=== PATIENT | male | born 1955 | race Caucasian/White ===

== ENCOUNTER 2019-07-10 05:39 | Outpatient (CLI) | payer BC ==
[~2019-07-10] VITALS: Ht 185 cm; Wt 84.0 kg
[~2019-07-10 05:39] MED LIST: ASPI-587 PO; BISO10TA PO; ENAL20TA PO; PRAV10TA PO; [UNRECOGNIZED DRUG - OTHER] PO
[2019-07-10] MEDS ORDERED: PRAV20TA3 PO (14:16)
[2019-07-10] MEDS ORDERED: LISI10TA2 PO (14:16)
[2019-07-10] MEDS ORDERED: ASPI-999 PO (14:16)
[2019-07-10] MEDS ORDERED: BISO10TA PO (14:16)
[2019-07-10] MEDS ORDERED: MULT1CAP27 PO (14:16)
== END 2019-07-10 14:35 | disposition home or self-care (01) ==
LOC: PREOP 05:39
PROVIDERS: ATTEND Surgery
DX: Z01.818 Encounter for other preprocedural examination (principal)

== ENCOUNTER 2021-07-15 09:05 | Outpatient (CLI) | payer BC ==
[~2021-07-15] VITALS: Ht 63.5 cm; Wt 95.3 kg
[~2021-07-15 09:05] MED LIST changes: +ACHD5005 PO; +ASPI-999 PO; +BISO10TA6 PO; +DOCU-143 PO; +LISI10TA25 PO; +MULT1CAP27 PO; +PRAV20TA3 PO
== END 2021-07-19 12:50 | disposition home or self-care (01) ==
LOC: PREOP 09:05
PROVIDERS: ATTEND Internal Medicine
DX: Z01.818 Encounter for other preprocedural examination (principal)

== ENCOUNTER → 2021-07-20 | Outpatient (CLI) | payer BC | LOC: CARD 09:00 | PROVIDERS: ATTEND Internal Medicine | DX: I08.0 Rheumatic disorders of both mitral and aortic valves (principal) | CPT/HCPCS: 93306 ==

== ENCOUNTER 2021-07-23 08:57 | Day surgery (SDC) | payer BC ==
--- NOTE | 2021-07-15 18:23 | HISTORY AND PHYSICAL ---
DATE OF SERVICE: SCREENING COLONOSCOPY HISTORY OF PRESENT ILLNESS: The patient is a 65-year-old white male referred by MARGRET Chadwick at Dr. Hardy's office for screening colonoscopy. I had performed an earlier colonoscopy on him 8 years ago with a little over 7 years ago, at which time he had 3 polyps removed, a tubular adenoma from the distal descending colon and hyperplastic polyps in the mid rectum and distal sigmoid colon. He states that he feels well. He has noted no bright red blood per rectum. Denies any bowel habit change or abdominal pain. He is not aware of any family history for colon cancer. PAST MEDICAL HISTORY: Significant for hypertension, hyperlipidemia with no known history of coronary artery disease. MEDICATIONS ON ADMISSION: Include bisoprolol 10 mg daily, pravastatin 80 mg daily, lisinopril 10 mg daily, baby aspirin daily, 2 grams of fish oil daily and multiple vitamin. PAST SURGICAL HISTORY: The patient reports no past surgeries. FAMILY HISTORY: Father at the age of 67 secondary to complications of coronary artery disease. Mother at age of 77 of malignant melanoma. SOCIAL HISTORY: He reports moderate alcohol intake with a 30- to 69-[id number]-xxis past smoking history. As I recall, he stated that he quit several years ago. REVIEW OF SYSTEMS: CONSTITUTIONAL: Denies night sweats, chills, fever, change in weight. PULMONARY: Denies cough, wheezing or shortness of breath. CARDIOVASCULAR: Denies chest pain, orthopnea, PND, pedal edema or syncope. GASTROINTESTINAL: As noted in the HPI. PHYSICAL EXAMINATION: GENERAL: Reveals a white male, appeared to be in no acute distress. VITAL SIGNS: Blood pressure 138/90, weight 212.6 pounds, up 5 pounds from 7 years ago. HEENT: Unremarkable. Sclerae nonicteric. CHEST: Clear to auscultation. CARDIOVASCULAR: Reveals a regular rate and rhythm. There is early systolic blowing type murmur noted best in the apex. It radiates laterally into the axilla, but can be heard in the back, especially on the left side. There is no S3 or S4 noted. No evidence for pulsus, parvus or tardus. NECK: Revealed no JVD, adenopathy or bruits. ABDOMEN: Soft, supple without mass, organomegaly or tenderness. EXTREMITIES: Reveal no cyanosis, clubbing or edema. ASSESSMENT: 1. The patient is being set up for screening colonoscopy. Prep instructions with Suprep kit were given and questions were answered. 2. Incidentally noted the patient has murmur suggesting mitral insufficiency and the possibility of mitral valve prolapse. The patient denies symptoms. Reports he has had no previous evaluation. I did take the liberty of setting him up for an echo with recommendations for referral back to discuss whether or not further investigation is recommended after echo results are available. I thank you for the referral of this pleasant gentleman. Job ID: [id number] DocumentID: [id number] Dictated Date: 07/15/2021 17:09:37 [employer] Consultant Date: 07/15/2021 18:23:00 Dictated By: ALICIA AN MD MTDD
[~2021-07-23] VITALS: Ht 185.9 cm; Wt 95.3 kg
[2021-07-23] MEDS ORDERED: LACTATED RINGERS 1,000 ML IV ONE (09:10)
[2021-07-23] MEDS ORDERED: LACTATED RINGERS 1,000 ML IV STA (09:17)
[2021-07-23] MEDS ORDERED: LIDOCAINE JELLY 2% 6 ML SYRINGE MM PRN (09:30)
[2021-07-23 09:31] VITALS: BP 139/76
[2021-07-23] MEDS ORDERED: PROPOFOL INJECTION 50 ML IV ONE (10:28)
[2021-07-23 11:15] VITALS: BP 107/62
[2021-07-23 11:17] VITALS: BP 107/62
[2021-07-23 11:30] VITALS: BP 121/73
[2021-07-23 11:50] VITALS: BP 121/73
--- NOTE | 2021-07-23 12:41 | Anesthesia-General Post-Op ---
MAC Patient Condition Mental Status/LOC: Same as Preop Cardiovascular: Satisfactory Nausea/Vomiting: Absent Respiratory: Satisfactory Pain: Controlled Complications: Absent Post Op Complications Complications None Follow Up Care/Instructions Patient Instructions None needed. Anesthesiology Discharge Order Discharge Order Patient is doing well, no complaints, stable vital signs, no apparent adverse anesthesia problems. No complications reported per nursing. YORDY PARDO CRNA Jul 23, 2021 12:41
--- NOTE | 2021-07-23 13:15 | OPERATIVE REPORT ---
DATE OF SERVICE: COLONOSCOPY SUMMARY INDICATION FOR THE PROCEDURE: Screening colonoscopy. DESCRIPTION OF PROCEDURE: The patient was placed in the left lateral decubitus position. Prior to undergoing colonoscopy, digital rectal evaluation was performed. Anal sphincter tone was normal and the perianal reflexes intact. The prostate is anodular and unremarkable on digital inspection. No abnormalities were noted on digital inspection of anal canal or distal rectal vault. The colonoscope was then inserted into the rectum and under direct visualization advanced to cecum. The cecum was identified by identification of ileocecal valve and cecal strap. Photographic documentation was obtained. Careful inspection was made as colonoscope withdrawn. Quality of prep was good. FINDINGS: There was no evidence for internal or external hemorrhoids. The rectum was unremarkable around the rectosigmoid junction where several hyperplastic polyps present 18 cm from the anal verge, in the distal sigmoid colon was an annular lesion. There was not overt evidence for ulceration, it was a polypoidal in appearance involving about half of the colonic wall and suspicious for at least a severely dysplastic polyp if not, underlying malignancy. It was too large to reliably remove via endoscopic means. Multiple biopsies were obtained and submitted. A 5 cm proximal to this in the sigmoid colon was a pedunculated polyp, which was snared, retrieved and submitted in its entirety, measuring about 1.5 cm in size. There were several adjacent sessile hyperplastic appearing polyps that were biopsied and cauterized via hot forceps. Several small to medium size sigmoid diverticulum were present as well as descending colonic diverticulum without evidence for diverticulitis. The splenic flexure, transverse colon, hepatic flexure, ascending colon, and cecum were unremarkable. ASSESSMENT: There is a suspicious polypoid-appearing mass in the distal sigmoid colon 18 cm from the anal verge, concerning for early underlying malignancy. Multiple biopsies were obtained and submitted for histopathology. This will require surgical excision if it is indeed a neoplastic process. A 1.5 cm pedunculated polyp was removed from the mid sigmoid colon via snare and there were several polyps also noted in the distal sigmoid colon removed via hot forceps with hyperplastic appearing features. The patient did have qtho-cm-vnyldqan diverticular disease noted in the sigmoid and descending colon without evidence for diverticulitis. We will discuss complex medical management as he does have new onset significant mitral insufficiency that will need to be worked up prior to any potential colonic surgery. Thank you for the referral of this pleasant gentleman. Job ID: [id number] DocumentID: [id number] Dictated Date: 07/23/2021 12:44:32 Global Supply Chain Director Date: 07/23/2021 13:14:33 Dictated By: ALICIA AN MD [facility]
== END 2021-07-23 11:50 | disposition home or self-care (01) ==
LOC: ENDO 08:57
PROVIDERS: ATTEND Internal Medicine
DX: Z12.11 Encounter for screening for malignant neoplasm of colon (principal); K63.5 Polyp of colon; D12.5 Benign neoplasm of sigmoid colon; K57.30 Diverticulosis of large intestine without perforation or abscess without bleeding; I10 Essential (primary) hypertension; E78.5 Hyperlipidemia, unspecified; Z79.82 Long term (current) use of aspirin; Z79.899 Other long term (current) drug therapy; Z80.8 Family history of malignant neoplasm of other organs or systems

== ENCOUNTER → 2021-08-09 | Outpatient (CLI) | payer MEDICARE, BC ==
[~2021-08-09] VITALS: Ht 185 cm; Wt 96.0 kg
[~2021-08-09] MED LIST changes: +CATHETER FLUSH 10 ML SYR IVP PRN; +OMG1KC PO; +PRAV80TA2 PO
[2021-08-09 09:40] VITALS: BP 148/85
--- NOTE | 2021-08-09 12:31 | Cardiology Stress Test Report ---
Stress Test Report Date of Procedure/Referring: Date of Procedure: Aug 09, 2021 PCP Evelyn Castaneda MD Admitting Physician Kika Hardy MD Indications: HTN Baseline Heart Rate: 50 Baseline Blood Pressure: Blood Pressure Systolic: 148 Blood Pressure Diastolic: 85 Vital Signs Date Time Temp Pulse Resp B/P (MAP) Pulse Ox O2 Delivery O2 Flow Rate FiO2 08/09/21 09:40 50 148/85 (106) Baseline Vital Signs Vital Signs Date Time Temp Pulse Resp B/P (MAP) Pulse Ox O2 Delivery O2 Flow Rate FiO2 08/09/21 09:40 50 148/85 (106) Baseline EKG: Baseline EKG: NSR Summary: After explaining the procedure and details to the patient, he signed the consent and was brought to the stress nuclear laboratory. Patient exercised on standard Bennie protocol, EKG, heart rate and blood pressure were monitored continuously, resting and stress doses of radio tracer were injected, imaging was acquired and reviewed in the short axis, horizontal long axis and vertical long axis views Patient was able to exercise for a total of 6.30 minutes on Bennie protocol, METs 7.9 Maximum heart rate 136 Maximum blood pressure 228/102 Stress EKG, Minimal nondiagnostic changes Recovery EKG, Return to baseline TID: 0.95 SSS: 6 SDS: 3 EF: 59 Conclusion: 1. Good exercise tolerance for a total of 6 minutes and 30 seconds on standard Bennie protocol, 7.9 METS achieving 85% of maximal expected heart rate 2. Mild chronotropic incompetence, heart rate stayed around 120 until the last minute of the test 3. Occasional PVCs noted early in recovery and short episode of paroxysmal atrial tachycardia 4 beats 4. Severe hypertensive response to exercise with peak blood pressure 228/102 5. Motion artifact and diaphragmatic attenuation, mild decrease uptake in the mid to apical inferior wall and inferolateral wall probably due to diaphragmatic attenuation with mild reversibility. No significant ischemia or infarction on SPECT images 6. Normal left ventricular size, EF 59% EVELYN CASTANEDA MD Aug 09, 2021 12:31
== END ==
LOC: CARD 08:13
PROVIDERS: ATTEND Internal Medicine Cardiovascular Disease
DX: I10 Essential (primary) hypertension (principal); I25.10 Atherosclerotic heart disease of native coronary artery without angina pectoris
CPT/HCPCS: 78452; 93017; A9502

== ENCOUNTER 2021-08-11 09:30 | Day surgery (SDC) | payer BC ==
[~2021-08-11] VITALS: Ht 185.4 cm; Wt 97.0 kg
[2021-08-11] VITALS (13 sets, daily range): BP systolic 117–162; BP diastolic 73–94
--- NOTE | 2021-08-11 08:01 | Conscious Sedation/ASA ---
Conscious Sedation Pre-Proced Time 08:00 ASA Score 3 For ASA 3 and 4: Consider anesthesia and medical clearance. Also, for patients with a history of failed moderate sedation consider anesthesia. Airway Lungs Heart ASA score ASA 1: a normal healthy patient ASA 2: a patient with a mild systemic disease (mid diabetes, controlled hypertension, obesity x ASA 3: a patient with a severe systemic disease that limits activity (angina, COPD, prior Myocardial infarction) ASA 4: a patient with an incapacitating disease that is a constant threat to life (CHF, renal failure) ASA 5: a moribund patient not expected to survive 24 hrs. (ruptured aneurysm) ASA 6: a declared brain- patient whose organs are being harvested. For emergent operations, add the letter E after the classification Mallampati Classification Grade 3 Sedation Plan Analgesia, Amnesia, Plan communicated to team members, Discussed options with patient/fam, Discussed risks with patient/fam The patient is an appropriate candidate to undergo the planned procedure, sedation, and anesthesia. The patient immediately re-assessed prior to indication. EVELYN CABRERA MD Aug 11, 2021 08:01
[2021-08-11 08:07] LABS: BILIRUBIN,URINE NEGATIVE (NEGATIVE); CLARITY,URINE CLEAR; COLOR,URINE YELLOW; GLUCOSE, URINE (UA) NEGATIVE (NEGATIVE); KETONES,URINE NEGATIVE (NEGATIVE); LEUKOCYTE ESTERASE ,URINE NEGATIVE (NEGATIVE); NITRITE,URINE NEGATIVE (NEGATIVE); PROTEIN,URINE NEGATIVE (NEGATIVE)
[2021-08-11 08:10] LABS: HEMATOCRIT 43 % (40-54); HEMOGLOBIN 14.6 g/dL (13.3-17.7); MEAN CORPUSCULAR HEMOGLOBIN 32 pg (25-34); MEAN CORPUSCULAR HGB CONC 34 g/dL (32-36); MEAN CORPUSCULAR VOLUME 93 fL (80-99); MEAN PLATELET VOLUME 9.5 fL (9.0-12.2); PLATELET COUNT 322 10^3/uL (130-400); WHITE BLOOD COUNT 8.2 10^3/uL (4.3-11.0)
--- NOTE | 2021-08-11 08:14 | Diagnostic Imaging Report ---
INDICATION: Pulmonary hypertension, pre-transesophageal echocardiography. Frontal chest obtained at 8:06 a.m. and compared to 01/13/2011. Heart and mediastinal silhouette are normal in appearance. Lungs appear clear. There is no sign of pleural fluid or pneumothorax. There is no significant edema. IMPRESSION: No acute process in the chest. Dictated by: Dictated on workstation # [id number]
[2021-08-11 08:23] LABS: INR 0.9 (0.8-1.4); PROTHROMBIN TIME PATIENT 12.2 SEC (12.2-14.7)
[2021-08-11 08:28] LABS: ALBUMIN 4.2 GM/DL (3.2-4.5); BILIRUBIN,TOTAL 0.6 MG/DL (0.1-1.0); CREATININE SERUM 0.91 MG/DL (0.60-1.30); POTASSIUM 3.9 MMOL/L (3.6-5.0); TOTAL PROTEIN 7.1 GM/DL (6.4-8.2)
[2021-08-11 08:34] LABS: BACTERIA,URINE NEGATIVE /HPF
[~2021-08-11 09:30] MED LIST changes: -CATHETER FLUSH 10 ML SYR IVP PRN; +LIDOCAINE 2% VISCOUS 15 ML UDC ONE; +LIDOCAINE 2% VISCOUS 15 ML UDC PO ONE; +MIDAZOLAM 5 MG/5 ML (VERSED) VIAL ONE; +NS IV 1000 ML 1,000 ML IV SCH; +NS IV 1000 ML 1,000 ML ONE; +fentaNYL INJ 100 MCG/2 ML AMP ONE
--- NOTE | 2021-08-11 10:27 | Discharge Inst-Post CATH ---
Discharge Inst-CATH/EP Problems Reviewed?: Yes Post Cardiac Cath/EP D/C Inst Follow Up/Plan Appointment with Dr. Castaneda's office in 2 to 4 weeks <b>CARDIAC CATH/EP PROCEDURE DISCHARGE INSTRUCTIONS</b> ACTIVITY * Go Home directly and rest. * Limit activity of the leg (or wrist if it was used) for 7 days including aer obics, swimming, jogging, bicycling, etc. * Restrict stair-climbing for 7 days if possible, if not, climb up with your non-cath leg, then bring together on the same step. * Avoid lifting, pushing, pulling or excessive movement of the affected extremi ty for 7 days. * Customary sexual activity may be resumed after 2 days-use caution not to use a position that strains or causes pain to the affected extremity. * No driving for 24 hours. * NO SMOKING. * Avoid straining for bowel movements for 7 days. * Gentle walking on level ground is allowed. * Returning to work will depend on the type of procedure and the results. Your doctor will discuss this with you. CALL YOUR DOCTOR FOR ANY OF THE FOLLOWING: *If bleeding from the puncture site occurs- Apply gentle pressure to site with clean cloth and call your doctor or EMS. * If a knot or lump forms under the skin, increases in size, or causes pain. * If bruising appears to be worsening or moving further down your leg instead of disappearing. * Temperature above 101 F. CARE OF YOUR GROIN INCISION; * Bruising or purple discoloration of the skin near the puncture site is common. * You may shower only, no bathtub bathing for 5 days. Be careful to avoid slipping as your leg may feel stiff. * If a closure device was used on your femoral artery, please see the attached guide regarding care of the device and your leg. * Leave dressing on FOR 24 hours. CARE OF YOUR WRIST INCISION; * Bruising or purple discoloration of the skin near the puncture site is common. * You may shower. * DO NOT submerge wrist. * Leave dressing on FOR 24 hours. EVELYN CASTANEDA MD Aug 11, 2021 10:27
== END 2021-08-11 11:25 | disposition home or self-care (01) ==
LOC: CATH 09:30 → SDC 11:04 → CATH 11:25
PROVIDERS: ATTEND Internal Medicine Cardiovascular Disease
DX: I34.0 Nonrheumatic mitral (valve) insufficiency (principal); I27.20 Pulmonary hypertension, unspecified; I10 Essential (primary) hypertension; E78.5 Hyperlipidemia, unspecified; I25.10 Atherosclerotic heart disease of native coronary artery without angina pectoris; F17.210 Nicotine dependence, cigarettes, uncomplicated; Z79.899 Other long term (current) drug therapy; Z79.82 Long term (current) use of aspirin
CPT/HCPCS: 36415; 71045; 80053; 80061; 81000; 85027; 85610; 85730; 87081; 93312

== ENCOUNTER → 2021-10-07 | Outpatient (CLI) | payer MEDICARE ==
[~2021-10-07] MED LIST changes: -LIDOCAINE 2% VISCOUS 15 ML UDC ONE; -LIDOCAINE 2% VISCOUS 15 ML UDC PO ONE; -MIDAZOLAM 5 MG/5 ML (VERSED) VIAL ONE; -NS IV 1000 ML 1,000 ML IV SCH; -NS IV 1000 ML 1,000 ML ONE; +RT-ALBUTEROL SULF 2.5 MG/3 ML PRE-MIX VIAL INH ONE; -fentaNYL INJ 100 MCG/2 ML AMP ONE
== END ==
LOC: RT 08:42
PROVIDERS: ATTEND Thoracic Surgery (Cardiothoracic Vascular Surgery)
DX: Z01.818 Encounter for other preprocedural examination (principal); I34.0 Nonrheumatic mitral (valve) insufficiency; I34.1 Nonrheumatic mitral (valve) prolapse; I51.1 Rupture of chordae tendineae, not elsewhere classified; Z87.891 Personal history of nicotine dependence
CPT/HCPCS: 94060; 94726; 94729

== ENCOUNTER → 2022-02-02 | Outpatient (RCR) | payer MEDICARE ==
[~2022-02-02] MED LIST changes: +APIX5TAB PO; +ATOR40TA70 PO; -RT-ALBUTEROL SULF 2.5 MG/3 ML PRE-MIX VIAL INH ONE
== END | disposition home or self-care (01) ==
LOC: CR 01-05 08:34
PROVIDERS: ATTEND Thoracic Surgery (Cardiothoracic Vascular Surgery)
DX: Z29.8 Encounter for other specified prophylactic measures (principal); I34.0 Nonrheumatic mitral (valve) insufficiency
CPT/HCPCS: 93798

== ENCOUNTER 2022-02-09 06:09 | Outpatient (CLI) | payer MEDICARE ==
[~2022-02-09] VITALS: Ht 185.4 cm; Wt 99.8 kg
[~2022-02-09 06:09] MED LIST changes: -APIX5TAB PO; -ATOR40TA70 PO
[2022-02-10] MEDS ORDERED: ATOR40TA70 PO (14:53)
[2022-02-10] MEDS ORDERED: APIX5TAB PO (14:53)
== END 2022-02-10 14:55 | disposition home or self-care (01) ==
LOC: PREOP 06:09
PROVIDERS: ATTEND Internal Medicine
DX: Z01.818 Encounter for other preprocedural examination (principal)

== ENCOUNTER 2022-02-18 07:54 | Day surgery (SDC) | payer MEDICARE ==
--- NOTE | 2022-02-09 07:40 | HISTORY AND PHYSICAL ---
DATE OF SERVICE: COLONOSCOPY HISTORY AND PHYSICAL DATE OF ADMISSION: 02/18/2022 HISTORY OF PRESENT ILLNESS: The patient is a 66-year-old white male seen for followup of colon polyps, the most significant polyp that he had six months ago was 1.5 cm pedunculated adenoma without dysplasia, removed from the mid sigmoid colon. He also had a rather large sessile hyperplastic ____ polyp noted in the distal sigmoid colon. He is return to ensure that there was no evidence of recurrence, both due to the large size of this and most predominantly for the adenomatous polyp. He had no difficulty with his last colonoscopy. In the interval, he did undergo mitral valve repair for mitral insufficiency with prolapse and severe mitral insufficiency. He has done well about six weeks out from prolapse, robotic surgery at . When asked, he has indeed recommended for prophylaxis, which we will accomplish in the form of a gram of Ancef IV started before the procedure and running through. He has had no abdominal pain, change in bowel habits, and did well with the surgery with no complications. There have been no other changes in health history. PHYSICAL EXAMINATION: GENERAL: Reveals a white male, who appears to be in no acute distress. VITAL SIGNS: Blood pressure 122/90. HEENT: Unremarkable. Sclerae nonicteric. CHEST: Clear, one small keyhole incision right upper chest healed well. Chest clear to auscultation. CARDIOVASCULAR: Reveals a regular rate and rhythm. There is a midsystolic click, but no murmur. ABDOMEN: Soft, supple without mass, organomegaly or tenderness. EXTREMITIES: No cyanosis, clubbing or edema. ASSESSMENT AND PLAN: The patient is being set up for surveillance colonoscopy due to the past history of colon polyps. See HPI. We will be performing antibiotic prophylaxis due to recent mitral valve repair surgery in the form of Ancef, which was discussed with the patient. He reports no antibiotic allergies and no known allergies. Prep instructions with [employer]te were given and questions were answered. Job ID: [id number] DocumentID: [id number] Dictated Date: 01/31/2022 13:13:00 Director Of Casino Date: 01/31/2022 13:19:34 Dictated By: ALICIA AN MD
[~2022-02-18] VITALS: Ht 185.4 cm; Wt 99.8 kg
[~2022-02-18 07:54] MED LIST changes: +APIX5TAB PO; +ATOR40TA70 PO
[2022-02-18] MEDS ORDERED: LACTATED RINGERS 1,000 ML IV STA (08:06)
[2022-02-18] MEDS ORDERED: ceFAZolin INJECTION 1,000 MG VIAL IV ONE (08:15)
[2022-02-18 08:23] VITALS: BP 120/81
--- NOTE | 2022-02-18 08:31 | Pre-Op Note & Conscious Sedat ---
Pre-Operative Progress Note Date H&P Reviewed: Feb 18, 2022 Time H&P Reviewed: 08:30 History & Physical: H&P Reviewed, Patient Examed, No changes noted Pre-Op Diagnosis: polyp follow up Conscious Sedation Pre-Proced ASA Score 2 For ASA 3 and 4: Consider anesthesia and medical clearance. Also, for patients with a history of failed moderate sedation consider anesthesia. Airway Lungs Heart ASA score ASA 1: a normal healthy patient ASA 2: a patient with a mild systemic disease (mid diabetes, controlled hypertension, obesity ASA 3: a patient with a severe systemic disease that limits activity (angina, COPD, prior Myocardial infarction) ASA 4: a patient with an incapacitating disease that is a constant threat to life (CHF, renal failure) ASA 5: a moribund patient not expected to survive 24 hrs. (ruptured aneurysm) ASA 6: a declared brain- patient whose organs are being harvested. For emergent operations, add the letter E after the classification Mallampati Classification Grade 2 Sedation Plan Analgesia, Amnesia, Plan communicated to team members, Discussed options with patient/fam, Discussed risks with patient/fam The patient is an appropriate candidate to undergo the planned procedure, sedation, and anesthesia. The patient immediately re-assessed prior to indication. ALICIA AN MD Feb 18, 2022 08:30
[2022-02-18] MEDS ORDERED: MIDAZOLAM 2 MG/2 ML (VERSED) VIAL ONE (08:50)
[2022-02-18] MEDS ORDERED: PROPOFOL INJECTION 50 ML IV ONE (08:50)
[2022-02-18 09:20] VITALS: BP 86/50
--- NOTE | 2022-02-18 09:27 | Progress Note-Post Operative ---
Post-Procedure Note Physician (s)/Weaver Dobby Loom (s) Physician ALICIA AN MD Pre-Procedure Diagnosis Pre-Procedure Diagnosis: polyp follow up Post-Procedure Diagnosis Post-operative diagnosis: multiple hyperplastic polyps cauterized rectum and distal sigmoid ALICIA AN MD Feb 18, 2022 09:27
[2022-02-18 09:35] VITALS: BP 103/59
[2022-02-18 09:58] VITALS: BP 130/76
--- NOTE | 2022-02-18 12:49 | Anesthesia-General Post-Op ---
MAC Patient Condition Mental Status/LOC: Same as Preop Cardiovascular: Satisfactory Nausea/Vomiting: Absent Respiratory: Satisfactory Pain: Controlled Complications: Absent Post Op Complications Complications None Follow Up Care/Instructions Patient Instructions None needed. Anesthesiology Discharge Order Discharge Order Patient is doing well, no complaints, stable vital signs, no apparent adverse anesthesia problems. No complications reported per nursing. XIOMY HANNA CRNA Feb 18, 2022 12:49
--- NOTE | 2022-02-24 02:52 | OPERATIVE REPORT ---
DATE OF SERVICE: COLONOSCOPY SUMMARY INDICATION FOR PROCEDURE: Surveillance past history of multiple hyperplastic polyps suspect for serrated polyposis syndrome. Last colonoscopy was 6 months ago. All polyps were read out as hyperplastic on his report 6 months ago. He has felt well and actually feeling much better since he had mitral valve repair, severe mitral insufficiency several months ago. DESCRIPTION OF PROCEDURE: The patient was placed in left lateral decubitus position and prior to scoping, received a gram of Ancef IV for endocarditis prophylaxis. Digital rectal evaluation was unremarkable as I recall the prostate was unremarkable. Digital inspection, no nodularity. Colonoscope was then inserted into the rectum and under direct visualization advanced to cecum. The cecum was identified by identification of ileocecal valve and cecal strap. Photographic documentation was obtained. Quality of prep was good. FINDINGS: Again, multiple subcentimeter hyperplastic appearing polyps were noted in the rectum. There is likely confluence of polyps, it measures 2 x 3 cm in size, for which multiple biopsies on his last colonoscopy this revealed reported hyperplastic pathology without evidence for dysplasia. Multiple biopsies were again obtained. The polyp was soft. No induration or erythema was noted. No ulceration was noted. It was subsequently submitted for histopathology. Location in distal sigmoid approximately 18 cm from anal verge Several smaller hyperplastic polyps were noted in the distal sigmoid colon. The descending colon, splenic flexure, transverse colon, hepatic flexure, ascending colon, and cecum were unremarkable. ASSESSMENT: Multiple hyperplastic polyps were again noted. The patient meets criteria for serrated polyposis syndrome. Between colonoscopy 6 months ago and his current colonoscopy with the most significant area and the reason for his early colonoscopy being an area in the distal sigmoid colon where there appeared to be a confluence of polyps previously reported as hyperplastic. This is too large to remove endoscopically. If there is evidence for dysplasia or malignancy, would require surgical removal. We will have the patient return in no longer than 1 year as long as malignancy or dysplasia are not identified. A number of small, less than 5 mm polyps were left today, waiting on histopathology report of this larger likely confluence of polyps noted in the distal sigmoid colon. Currently, increased surveillance with colonoscopy with polypectomy until all polyps are removed, is the current recommendation for serrated polyposis syndrome. Currently, the patient does not exhibit any right-sided disease. I thank you for the referral of this pleasant gentleman. Job ID: [id number] DocumentID: [id number] Dictated Date: 02/23/2022 17:43:10 Construction Worker Date: 02/24/2022 02:51:22 Dictated By: ALICIA AN MD MTDD
== END 2022-02-18 11:04 | disposition home or self-care (01) ==
LOC: ENDO 07:54
PROVIDERS: ATTEND Internal Medicine
DX: Z12.11 Encounter for screening for malignant neoplasm of colon (principal); D12.5 Benign neoplasm of sigmoid colon; K63.5 Polyp of colon; Z87.891 Personal history of nicotine dependence

== ENCOUNTER → 2022-02-25 | Outpatient (CLI) | payer MEDICARE ==
[~2022-02-25] MED LIST changes: +CATHETER FLUSH 10 ML SYR IV PRN; +HOLD METFORMIN - RECEIVED CONTRAST 20 ML VIAL IV SCH; +IOHEXOL 350 MG/ML 100 ML (OMNIPAQUE 350) VIAL IV ONE; +NS 100 ML (IVPB) BAG IV ONE
[2022-02-25 12:26] LABS: ALBUMIN 4.3 GM/DL (3.2-4.5); BILIRUBIN,TOTAL 0.7 MG/DL (0.1-1.0); CALCIUM 9.6 MG/DL (8.5-10.1); CREATININE SERUM 0.96 MG/DL (0.60-1.30); POTASSIUM 4.2 MMOL/L (3.6-5.0); TOTAL PROTEIN 7.8 GM/DL (6.4-8.2)
--- NOTE | 2022-02-25 14:51 | Diagnostic Imaging Report ---
PROCEDURE: CT of the abdomen with and without contrast and CT of the pelvis with contrast. TECHNIQUE: Precontrast acquisitions were acquired through the abdomen. Multiple contiguous axial images were obtained through the abdomen and pelvis after administration of intravenous contrast. Auto Exposure Controls were utilized during the CT exam to meet ALARA standards for radiation dose reduction. INDICATION: Newly diagnosed colon carcinoma. COMPARISON: No prior studies are available for comparison. FINDINGS: Imaging through the lung bases shows tiny noncalcified nodules in the left lower lobe, approximately 3 to 4 mm in size, indeterminate. No discrete liver mass is detected. Gallbladder is unremarkable. There is no biliary ductal dilatation. The pancreas and spleen are unremarkable. No adrenal mass is identified. Kidneys contain cortical low-attenuation lesions, largest in upper pole left kidney measuring approximately 3.9 cm and most suggestive of cysts. Aorta is calcified but nonaneurysmal. There is no central retroperitoneal or mesenteric lymphadenopathy. Small and large bowel loops are normal caliber. There is diverticulosis of the descending and sigmoid colon but no evidence of acute diverticulitis. No pelvic lymphadenopathy is seen. There is no ascites or fluid collection. Bladder and prostate are unremarkable. Bony structures are nonacute. IMPRESSION: 1. No evidence of abdominal or pelvic lymphadenopathy or metastatic disease. 2. Uncomplicated diverticulosis. Dictated by: Dictated on workstation # [id number]
== END ==
LOC: RAD 12:45
PROVIDERS: ATTEND Family Medicine
DX: C18.9 Malignant neoplasm of colon, unspecified (principal); K57.90 Diverticulosis of intestine, part unspecified, without perforation or abscess without bleeding
CPT/HCPCS: 36415; 74178; 80053; 82378

== ENCOUNTER 2022-03-02 08:20 | Day surgery (SDC) | payer MEDICARE ==
[~2022-03-02] VITALS: Ht 185.4 cm; Wt 101.2 kg
[~2022-03-02 08:20] MED LIST changes: -CATHETER FLUSH 10 ML SYR IV PRN; -HOLD METFORMIN - RECEIVED CONTRAST 20 ML VIAL IV SCH; -IOHEXOL 350 MG/ML 100 ML (OMNIPAQUE 350) VIAL IV ONE; -NS 100 ML (IVPB) BAG IV ONE
[2022-03-02] MEDS ORDERED: LIDOCAINE 1% INJ 30 ML (XYLOCAINE) VIAL ONE (09:55)
[2022-03-02] MEDS ORDERED: LIDOCAINE 1% INJ 20 ML VIAL INJ ONE (10:00)
[2022-03-02 10:06] VITALS: BP 157/98
--- NOTE | 2022-03-02 10:50 | Implantation of Loop Monitor ---
Implant of Loop Monitior IMPLANTATION OF LOOP MONITOR REPORT DATE OF PROCEDURE: 03/02/22 PREOP DIAGNOSIS: Paroxysmal atrial fibrillation POSTOP DIAGNOSIS: Paroxysmal atrial fibrillation PROCEDURE DETAILS: The patient is a 66 male with history of paroxysmal atrial fibrillation requiring long-term surveillance. Therefore implantable loop recorder was discussed and agreed with the patient. Informed consent was taken. All risks and complications were discussed at length. The patient was draped and prepped in the usual sterile fashion. Local anesthesia was lidocaine, which was given in the substernal area close to the 4th intercostal space. Loop monitor [employer] with serial number [id number] was implanted according to the protocol. Steri- Strips were placed at the end of the procedure. There were no complications and the patient tolerated the procedure well. ANESTHESIA: Local anesthesia with lidocaine. COMPLICATIONS: None CONTRAST/FLUOROSCOPY: None CONCLUSION: Successful loop implantation with no complication FINAL DIAGNOSIS: Paroxysmal atrial fibrillation GI bleed Hypertension EVELYN CABRERA MD Mar 02, 2022 10:50
== END 2022-03-02 11:17 | disposition home or self-care (01) ==
LOC: CATH 08:20
PROVIDERS: ATTEND Internal Medicine Cardiovascular Disease
DX: I48.0 Paroxysmal atrial fibrillation (principal); K92.2 Gastrointestinal hemorrhage, unspecified; I10 Essential (primary) hypertension; I34.0 Nonrheumatic mitral (valve) insufficiency; I27.20 Pulmonary hypertension, unspecified; E78.2 Mixed hyperlipidemia; I25.10 Atherosclerotic heart disease of native coronary artery without angina pectoris; Z95.2 Presence of prosthetic heart valve; Z79.01 Long term (current) use of anticoagulants; Z87.891 Personal history of nicotine dependence; Z79.82 Long term (current) use of aspirin
CPT/HCPCS: 33285; 93798; C1764

== ENCOUNTER 2022-03-02 14:02 | Outpatient (RCR) | payer MEDICARE | END 2022-03-04 | disposition home or self-care (01) | LOC: CR 14:02 | PROVIDERS: ATTEND Thoracic Surgery (Cardiothoracic Vascular Surgery) | DX: Z29.8 Encounter for other specified prophylactic measures (principal); I34.0 Nonrheumatic mitral (valve) insufficiency | CPT/HCPCS: 93798 ==

== ENCOUNTER 2022-03-14 13:55 | Outpatient (RCR) | payer MEDICARE | END 2022-04-04 | disposition home or self-care (01) | LOC: CR 13:55 | PROVIDERS: ATTEND Thoracic Surgery (Cardiothoracic Vascular Surgery) | DX: Z29.8 Encounter for other specified prophylactic measures (principal); I34.0 Nonrheumatic mitral (valve) insufficiency | CPT/HCPCS: 93798 ==

== ENCOUNTER → 2022-04-19 | Outpatient (CLI) | payer MEDICARE | LOC: CARD 08:41 | PROVIDERS: ATTEND Physician Assistant | DX: I34.0 Nonrheumatic mitral (valve) insufficiency (principal); I51.7 Cardiomegaly; I25.10 Atherosclerotic heart disease of native coronary artery without angina pectoris | CPT/HCPCS: 93306 ==

== ENCOUNTER → 2022-07-06 | Outpatient (CLI) | payer MEDICARE ==
--- NOTE | 2022-07-06 10:23 | Diagnostic Imaging Report ---
CLINICAL INDICATION: Patient with malignant neoplasm of the colon. Patient has history of heart surgery and colon surgery. EXAM: Axial CT scan of the chest performed without IV contrast. Sagittal and coronal reformatted images are created. Auto Exposure Controls were utilized during the CT exam to meet ALARA standards for radiation dose reduction. COMPARISON: None. FINDINGS: There are mild subpleural cystic changes involving both lung apices. There are multiple nodules seen throughout both lungs with the largest one measuring 6 mm in the inferior posterior aspect of the right lobe of the liver near the minor fissure. Most of these nodules appear to have increased density and are suspected to represent calcified granuloma. There is no pleural effusion or pneumothorax. There is no lung infiltrate. There are small calcified granuloma involving the right perihilar region. There is no significant mediastinal or hilar lymphadenopathy. There is no axillary lymphadenopathy. There appear to be valvuloplasty changes of the mitral valve. Coronary artery vascular calcifications are seen. The thoracic aorta is non-aneurysmal. There is a 3.9 cm cyst involving the mid to upper aspect of the left kidney. There is note of wall thickening involving the stomach, pylorus, and 1st portion of duodenum. These findings may be related to gastritis and duodenitis versus contraction. The remainder of the visualized upper abdominal structures are unremarkable. There are degenerative spurs involving the thoracic spine. IMPRESSION: 1: There are multiple lung nodules seen throughout both lungs. Most of the nodules have increased density and likely represent calcified granuloma. There are calcified lymph nodes involving the right perihilar region. Given the patient's history of colon cancer, comparison to prior CT scans to evaluate for stability is suggested. Otherwise, followup chest CT scan in 6 months is suggested to evaluate for stability. 2: There is no acute thoracic abnormality seen. 3: Possible gastritis and duodenitis versus contraction. Dictated by: Dictated on workstation # [id number]
== END ==
LOC: RAD 08:50
PROVIDERS: ATTEND Clinical Nurse Specialist Oncology
DX: C18.9 Malignant neoplasm of colon, unspecified (principal); R91.8 Other nonspecific abnormal finding of lung field
CPT/HCPCS: 71250